=== PATIENT | male | born 1950 | race Two or more races ===

== ENCOUNTER 2021-04-27 07:28 | Outpatient (CLI) | payer OTHER ==
[2021-04-27] MEDS ORDERED: UROXATRAL10 MG PO (14:15)
[2021-04-27] MEDS ORDERED: AMBIEN10 MG PO (14:16)
[2021-04-27] MEDS ORDERED: GABAPENTIN300 M2 PO (14:16)
[2021-04-27] MEDS ORDERED: DULOXETINE HCL40 MG PO (14:16)
[2021-04-27] MEDS ORDERED: ZESTRIL20 MG PO (14:16)
[2021-04-27] MEDS ORDERED: SIMVASTATIN5 MG PO (14:16)
== END 2021-04-27 07:30 | disposition home or self-care (01) ==
LOC: LAB 07:28
PROVIDERS: ATTEND Orthopaedic Surgery
DX: N39.0 Urinary tract infection, site not specified (principal); R78.81 Bacteremia; B95.7 Other staphylococcus as the cause of diseases classified elsewhere; D64.89 Other specified anemias; E88.89 Other specified metabolic disorders; D68.8 Other specified coagulation defects; Z22.322 Carrier or suspected carrier of Methicillin resistant Staphylococcus aureus; Z76.89 Persons encountering health services in other specified circumstances; I10 Essential (primary) hypertension; I49.8 Other specified cardiac arrhythmias

== ENCOUNTER 2021-05-11 05:40 | Day surgery (SDC) | payer OTHER ==
[~2021-05-11 05:40] MED LIST: AMBIEN10 MG PO; DULOXETINE HCL40 MG PO; GABAPENTIN300 M2 PO; SIMVASTATIN5 MG PO; UROXATRAL10 MG PO; ZESTRIL20 MG PO
== END 2021-05-11 15:15 | disposition home or self-care (01) ==
LOC: CIR.AMB 05:40
PROVIDERS: ATTEND Orthopaedic Surgery
DX: M20.5X1 Other deformities of toe(s) (acquired), right foot (principal); M85.471 Solitary bone cyst, right ankle and foot; M20.11 Hallux valgus (acquired), right foot; Z20.822 Contact with and (suspected) exposure to COVID-19

== ENCOUNTER 2021-05-25 07:07 | Outpatient (CLI) | payer OTHER | END 2021-05-25 07:11 | disposition home or self-care (01) | LOC: RAD 07:07 | PROVIDERS: ATTEND Orthopaedic Surgery | DX: M20.21 Hallux rigidus, right foot (principal); M20.5X1 Other deformities of toe(s) (acquired), right foot ==